=== PATIENT | female | born 1960 | race African-American/Black ===

== ENCOUNTER 2025-02-09 15:40 | Inpatient (IN) | payer MEDICARE, MEDICAID, BC ==
[~2025-02-09] VITALS: Ht 157.5 cm; Wt 47.2 kg
[2025-02-09] VITALS (9 sets, daily range): BP systolic 106–150; BP diastolic 50–89; PULSE 72–90; RESP 19–28; TEMP 36.2–36.3; O2SAT 95–100
[2025-02-09] MEDS ORDERED: IPRATROPIUM/ALBUTEROL 0.5-3(2.5)MG/3ML NEB HHN PRN (22:15)
[2025-02-09] MEDS ORDERED: MIRT-89 GT (23:52)
[2025-02-09] MEDS ORDERED: LIDO700A30 TP (23:52)
[2025-02-09] MEDS ORDERED: INSU100V43 SQ (23:52)
[2025-02-09] MEDS ORDERED: MELA5TAB19 GT (23:52)
[2025-02-09] MEDS ORDERED: TOPUD PO (23:52)
[2025-02-09] MEDS ORDERED: METO5SOL22 GT (23:52)
[2025-02-09] MEDS ORDERED: HYDR25TA78 GT (23:52)
[2025-02-09] MEDS ORDERED: ACYC200C31 IV (23:52)
[2025-02-09] MEDS ORDERED: DARB40DI IVP (23:52)
[2025-02-09] MEDS ORDERED: METH80VI IJ (23:52)
[2025-02-09] MEDS ORDERED: NEOAPJ IVP (23:52)
[2025-02-09] MEDS ORDERED: ATOR-2 GT (23:52)
[2025-02-09] MEDS ORDERED: BISA-145 PR (23:52)
[2025-02-09] MEDS ORDERED: AMIO100T4 GT (23:52)
[2025-02-09] MEDS ORDERED: LATA2.5D14 EACHEYE (23:52)
[2025-02-09] MEDS ORDERED: APIX2.5T GT (23:52)
[2025-02-09] MEDS ORDERED: LEVE100034 IV (23:52)
[2025-02-09] MEDS ORDERED: LORA2DIS6 IJ (23:52)
[2025-02-09] MEDS ORDERED: HYDR1LIQ5 IVP ×2 (23:52)
[2025-02-09] MEDS ORDERED: LOPE2CAP GT (23:52)
[2025-02-09] MEDS ORDERED: METO100T16 GT (23:52)
[2025-02-10] VITALS (107 sets, daily range): BP systolic 94–174; BP diastolic 42–134; PULSE 61–100; RESP 14–50; TEMP 33.28044–36.8; O2SAT 88–100
[2025-02-10] MEDS ORDERED: NITR30OI TP (00:03)
[2025-02-10] MEDS ORDERED: OLAN2.5T77 GT (00:03)
[2025-02-10] MEDS ORDERED: NYST15CR31 TP (00:03)
[2025-02-10] MEDS ORDERED: SEVE800T8 GT (00:03)
[2025-02-10] MEDS ORDERED: ONDA2VIA4 IVP (00:03)
[2025-02-10] MEDS ORDERED: ZINC113C10 TP (00:03)
[2025-02-10] MEDS ORDERED: ZINC220T3 GT (00:03)
[2025-02-10] MEDS ORDERED: MULT-622 GT (00:03)
[2025-02-10] MEDS ORDERED: PANT40TA51 IVP (00:03)
[2025-02-10 01:06] LABS: MEAN CORPUSCULAR HEMOGLOBIN 26.3 pg (28.0-32.0); MEAN CORPUSCULAR HGB CONC 32.6 g/dL (31.0-37.0); MEAN CORPUSCULAR VOLUME 80.7 fL (81.0-99.0); MEAN PLATELET VOLUME 9.9 fl (7.4-10.4); PLATELET 80 x1000/uL (130-400); RED BLOOD CELL COUNT 2.33 mill/uL (4.2-5.4); RED CELL DISTRIBUTION WIDTH 17.6 % (11.6-14.6); WHITE BLOOD COUNT 13.7 x1000/uL (4.5-11.0)
[2025-02-10 01:23] LABS: CHLORIDE 100 mEq/L (98-107); SODIUM 139 mEq/L (136-145)
[2025-02-10 01:24] LABS: CALCIUM 8.2 mg/dL (8.7-10.4); CARBON DIOXIDE 30 mEq/L (21-32); DIFFERENTIAL COMMENT 1
[2025-02-10 01:29] LABS: CREATININE 2.3 mg/dL (0.6-1.0); GLUCOSE 159 mg/dL (70-105)
[2025-02-10 01:30] LABS: ALANINE AMINOTRANSFERASE 85 IU/L (10-49); ASPARTATE AMINOTRANSFERASE 76 IU/L (<34)
[2025-02-10 01:31] LABS: ALBUMIN 1.9 g/dL (3.2-4.8); BILIRUBIN TOTAL 0.3 mg/dL (0.1-1.0)
[2025-02-10 01:32] LABS: HEMATOCRIT. 18.8 % (36.0-48.0); HEMOGLOBIN. 6.1 g/dL (12.0-16.0)
[2025-02-10 01:41] LABS: PROTEIN TOTAL 4.3 g/dL (6.0-8.3)
[2025-02-10 01:43] LABS: POTASSIUM 2.6 mEq/L (3.5-5.1)
[2025-02-10 01:44] LABS: UREA NITROGEN BLOOD 110 mg/dL (9-23)
[2025-02-10] MEDS ORDERED: HYDROCODONE/ACETAMINOPHEN 5/325MG TABLET GT PRN (02:15)
[2025-02-10] MEDS ORDERED: ONDANSETRON HCL 4MG/2ML INJ IV PRN (02:15)
[2025-02-10] MEDS ORDERED: ACETAMINOPHEN 650MG/20.3ML UDC GT PRN ×2 (02:15)
[2025-02-10] MEDS ORDERED: CLONIDINE 0.1MG TABLET GT PRN (02:15)
[2025-02-10] MEDS ORDERED: LORAZEPAM 2MG/ML UD SYRINGE IV PRN (02:15)
[2025-02-10] MEDS ORDERED: HYDROMORPHONE HCL/PF 2MG/ML INJ IV PRN (02:15)
[2025-02-10] MEDS ORDERED: ACETAMINOPHEN 650MG SUPP PR PRN ×2 (02:15)
[2025-02-10] MEDS ORDERED: MAGNESIUM/ALUMINUM HYDROXIDE/SIMETHICONE 30ML UDC PEG PRN (02:15)
[2025-02-10] MEDS ORDERED: NA PHOS,M-B/NA PHOS,DI-BA ENEMA 118ML PR PRN (02:15)
[2025-02-10] MEDS: DEXT 5%/0.45% NACL 1000ML 1,000 ML IV SCH (03:18)
[2025-02-10] MEDS: KCL 20MEQ/100ML PREMIX 100 ML IV SCH ×2 (03:19→05:09)
[2025-02-10] MEDS ORDERED: ACYCLOVIR INJ 500 MG in DEXT 5% WATER 100 ML IV SCH (06:30)
[2025-02-10 08:15] LABS: MEAN CORPUSCULAR HEMOGLOBIN 26.2 pg (28.0-32.0); MEAN CORPUSCULAR HGB CONC 32.1 g/dL (31.0-37.0); MEAN CORPUSCULAR VOLUME 81.7 fL (81.0-99.0); MEAN PLATELET VOLUME 10.9 fl (7.4-10.4); PLATELET 71 x1000/uL (130-400); RED BLOOD CELL COUNT 2.32 mill/uL (4.2-5.4); RED CELL DISTRIBUTION WIDTH 17.8 % (11.6-14.6); WHITE BLOOD COUNT 12.1 x1000/uL (4.5-11.0)
[2025-02-10] MEDS ORDERED: CEFEPIME 1GM IN DEXT 5% 50ML IV SCH (08:15)
[2025-02-10 08:24] LABS: TROPONIN I HIGH SENSITIVITY 28 ng/L (3.0-34)
[2025-02-10 08:26] LABS: CREATINE KINASE 40 IU/L (34-145)
[2025-02-10 08:31] LABS: DIFFERENTIAL COMMENT 1
[2025-02-10 08:33] LABS: HEMOGLOBIN. 6.1 g/dL (12.0-16.0)
[2025-02-10 08:34] LABS: HEMATOCRIT. 18.9 % (36.0-48.0)
[2025-02-10] MEDS: METHYLPREDNISOLONE SOD SUCC 40MG/ML (ACT-O-VIAL) IV SCH (09:32)
[2025-02-10] MEDS: DEXTROSE 5% IV SCH (09:32)
[2025-02-10] MEDS: WATER IV SCH (09:32)
[2025-02-10] MEDS: ACYCLOVIR IV SCH (09:32)
[2025-02-10 10:40] LABS: BG BASE EXCESS 2.8 mmol/L (-2.0-3.0); BG CARBOXYHEMOGLOBIN 0.1 % (0.5-1.5); BG DEOXYHEMOGLOBIN 0.8 % (0.0-5.0); BG FRACTION INSPIRED OXYGEN 100; BG HCO3 ACT 26.5 mmol/L (21.0-28.0); BG OXYGEN SATURATION 99.2 % (94.0-98.0); BG OXYHEMOGLOBIN 99.1 % (94.0-98.0); BG PCO2 36.7 mmHg (32.0-45.0); BG PH 7.476 (7.350-7.450); BG TOTAL HEMOGLOBIN 9.3 g/dL (12.0-16.0); BG VENT MODE VENT - AC
[2025-02-10] MEDS: CEFEPIME 1GM/50ML 50 ML IV SCH (10:43)
[2025-02-10 11:28] LABS: ANISOCYTOSIS 1+; HYPOCHROMASIA 2+; PLATELET ESTIMATE DECREASED
[2025-02-10 11:33] LABS: PLATELET ESTIMATE DECREASED
[2025-02-10 11:34] LABS: ANISOCYTOSIS 2+; HYPOCHROMASIA 1+; TARGET CELLS 1+
[2025-02-10] MEDS: AMLODIPINE 5MG TABLET PO SCH (12:10)
[2025-02-10] MEDS: VANCOMYCIN 1G PREMIX 200 ML IV SCH (12:10)
[2025-02-10] MEDS: AMIODARONE 200MG TABLET PO SCH (12:10)
[2025-02-10] MEDS: LEVETIRACETAM 1000MG PREMIX 100 ML IV SCH (12:10)
[2025-02-10 12:32] LABS: CHLORIDE 103 mEq/L (98-107); POTASSIUM 3.8 mEq/L (3.5-5.1); SODIUM 138 mEq/L (136-145)
[2025-02-10 12:33] LABS: CALCIUM 8.3 mg/dL (8.7-10.4); CARBON DIOXIDE 29 mEq/L (21-32)
[2025-02-10 12:38] LABS: CREATININE 2.5 mg/dL (0.6-1.0); GLUCOSE 235 mg/dL (70-105)
[2025-02-10 12:40] LABS: ALANINE AMINOTRANSFERASE 73 IU/L (10-49); ALBUMIN 1.8 g/dL (3.2-4.8); ASPARTATE AMINOTRANSFERASE 60 IU/L (<34); BILIRUBIN TOTAL 0.5 mg/dL (0.1-1.0); PHOSPHORUS 3.5 mg/dL (2.5-4.9)
[2025-02-10 12:41] LABS: PROTEIN TOTAL 4.2 g/dL (6.0-8.3)
[2025-02-10 14:07] LABS: UREA NITROGEN BLOOD 105 mg/dL (9-23)
[2025-02-10] MEDS: HYDRALAZINE HCL 25MG TABLET PO SCH (15:10)
[2025-02-10 15:57] LABS: HEMATOCRIT 24.9 % (36.0-48.0); HEMOGLOBIN 8.2 g/dL (12.0-16.0); MEAN CORPUSCULAR HEMOGLOBIN 27.6 pg (28.0-32.0); MEAN CORPUSCULAR HGB CONC 33.1 g/dL (31.0-37.0); MEAN CORPUSCULAR VOLUME 83.2 fL (81.0-99.0); PLATELET 74 x1000/uL (130-400); RED BLOOD CELL COUNT 2.99 mill/uL (4.2-5.4); RED CELL DISTRIBUTION WIDTH 16.7 % (11.6-14.6); WHITE BLOOD COUNT 13.8 x1000/uL (4.5-11.0)
[2025-02-10 16:26] LABS: HEPATITIS B SURFACE ANTIGEN NEGATIVE (Negative)
[2025-02-10 16:47] LABS: HEPATITIS A AB IGM NEGATIVE (Negative); HEPATITIS B CORE AB IGM NEGATIVE (Negative)
[2025-02-10 16:48] LABS: HEPATITIS C AB NON REACTIVE (Neg) (Negative)
[2025-02-10] MEDS ORDERED: FENTANYL 2500MCG/250ML PMX 250 ML IV ONE (19:00)
[2025-02-10] MEDS: PROPOFOL 10MG/ML 100ML 100 ML IV PRN (19:03)
[2025-02-10] MEDS ORDERED: LEVETIRACETAM 1,000MG in NACL 100ML PREMIX IV SCH (21:00)
[2025-02-10] MEDS: IPRATROPIUM/ALBUTEROL 0.5-3(2.5)MG/3ML NEB HHN SCH (21:40)
[2025-02-10] MEDS: ATORVASTATIN CALCIUM 40MG TABLET PO SCH (21:52)
[2025-02-10] MEDS: METOPROLOL TARTRATE 100MG TABLET PO SCH (21:55)
[2025-02-11] VITALS (106 sets, daily range): BP systolic 88–171; BP diastolic 50–125; PULSE 58–115; RESP 13–38; TEMP 36.6–36.9; O2SAT 84–99
[2025-02-11 06:00] LABS: HEMATOCRIT. 25.6 % (36.0-48.0); HEMOGLOBIN. 8.5 g/dL (12.0-16.0); MEAN CORPUSCULAR HEMOGLOBIN 27.8 pg (28.0-32.0); MEAN CORPUSCULAR HGB CONC 33.2 g/dL (31.0-37.0); MEAN CORPUSCULAR VOLUME 83.7 fL (81.0-99.0); MEAN PLATELET VOLUME 11.2 fl (7.4-10.4); PLATELET 78 x1000/uL (130-400); RED BLOOD CELL COUNT 3.06 mill/uL (4.2-5.4); RED CELL DISTRIBUTION WIDTH 16.8 % (11.6-14.6); WHITE BLOOD COUNT 15.2 x1000/uL (4.5-11.0)
[2025-02-11 06:01] LABS: CHLORIDE 103 mEq/L (98-107); POTASSIUM 3.4 mEq/L (3.5-5.1); SODIUM 139 mEq/L (136-145)
[2025-02-11 06:02] LABS: CARBON DIOXIDE 27 mEq/L (21-32)
[2025-02-11 06:07] LABS: GLUCOSE 237 mg/dL (70-105); TRIGLYCERIDE 130 mg/dL (0-150); UREA NITROGEN BLOOD 56 mg/dL (9-23)
[2025-02-11 06:09] LABS: ALBUMIN 1.9 g/dL (3.2-4.8)
[2025-02-11 06:10] LABS: THYROID STIMULATING HORMONE 1.24 uIU/mL (0.55-4.78)
[2025-02-11 06:13] LABS: DIFFERENTIAL COMMENT 1
[2025-02-11 06:17] LABS: CREATININE 1.7 mg/dL (0.6-1.0); PREALBUMIN < 5.0 mg/dl (10.0-40.0)
[2025-02-11] MEDS: KCL 20MEQ/100ML PREMIX 100 ML IV NR (08:46)
[2025-02-11 09:28] LABS: ANISOCYTOSIS 1+; HYPOCHROMASIA 1+; PLATELET ESTIMATE DECREASED; TARGET CELLS 1+
[2025-02-11 09:30] LABS: BG BASE EXCESS 1.2 mmol/L (-2.0-3.0); BG CARBOXYHEMOGLOBIN 1.5 % (0.5-1.5); BG DEOXYHEMOGLOBIN 9.7 % (0.0-5.0); BG FRACTION INSPIRED OXYGEN 60; BG HCO3 ACT 24.4 mmol/L (21.0-28.0); BG METHEMOGLOBIN 0.3 % (0.5-1.5); BG OXYGEN SATURATION 90.1 % (94.0-98.0); BG OXYHEMOGLOBIN 88.5 % (94.0-98.0); BG PH 7.473 (7.350-7.450); BG SAMPLE SITE LEFT BRACHIAL; BG TOTAL HEMOGLOBIN 13.4 g/dL (12.0-16.0); BG VENT MODE VENT - AC-PRVC
[2025-02-11] MEDS: PIPERACILLIN/TAZO 3.375G/50ML 50 ML IV SCH (09:42)
[2025-02-11] MEDS ORDERED: PIPERACILLIN/TAZO 3.375G/50ML 50 ML IV SCH (10:00)
[2025-02-11] MEDS: HYDRALAZINE HCL 50MG TABLET PO SCH (14:26)
[2025-02-11] MEDS: PROPOFOL 10MG/ML 100ML 100 ML IV PRN (20:11)
[2025-02-12] VITALS (98 sets, daily range): BP systolic 78–198; BP diastolic 45–110; PULSE 40–98; RESP 13–39; TEMP 36.1–36.8; O2SAT 85–100
[2025-02-12 06:06] LABS: HEMATOCRIT. 26.8 % (36.0-48.0); HEMOGLOBIN. 8.9 g/dL (12.0-16.0); MEAN CORPUSCULAR HEMOGLOBIN 27.8 pg (28.0-32.0); MEAN CORPUSCULAR HGB CONC 33.2 g/dL (31.0-37.0); MEAN CORPUSCULAR VOLUME 83.7 fL (81.0-99.0); MEAN PLATELET VOLUME 11.5 fl (7.4-10.4); RED CELL DISTRIBUTION WIDTH 16.8 % (11.6-14.6); WHITE BLOOD COUNT 11.1 x1000/uL (4.5-11.0)
[2025-02-12 06:18] LABS: POTASSIUM 3.9 mEq/L (3.5-5.1)
[2025-02-12 06:19] LABS: CALCIUM 8.5 mg/dL (8.7-10.4)
[2025-02-12 06:24] LABS: CREATININE 2.1 mg/dL (0.6-1.0)
[2025-02-12 06:30] LABS: INR 1.1; PARTIAL THROMBOPLASTIN TIME 28.8 sec (23.4-31.0)
[2025-02-12 06:51] LABS: DIFFERENTIAL COMMENT 1
[2025-02-12] MEDS ORDERED: DEXTROSE 50% WATER 50ML SYRINGE IV PRN (07:30)
[2025-02-12] MEDS: BLOOD SUGAR DIAGNOSTIC STRIP TEST SCH (07:44)
[2025-02-12] MEDS: INSULIN LISPRO 100 UNITS/ML SUBCUT SCH (07:51)
[2025-02-12] MEDS: PANTOPRAZOLE SODIUM 40 MG/VIAL IV SCH (09:48)
[2025-02-12 10:19] LABS: BG BASE EXCESS -2.2 mmol/L (-2.0-3.0); BG DEOXYHEMOGLOBIN 10.1 % (0.0-5.0); BG FRACTION INSPIRED OXYGEN 45; BG HCO3 ACT 22.2 mmol/L (21.0-28.0); BG METHEMOGLOBIN 0.3 % (0.5-1.5); BG OXYGEN SATURATION 89.9 % (94.0-98.0); BG OXYHEMOGLOBIN 89.6 % (94.0-98.0); BG PCO2 36.9 mmHg (32.0-45.0); BG PH 7.398 (7.350-7.450); BG PO2 59.7 mmHg (83.0-108.0); BG SAMPLE SITE RIGHT BRACHIAL; BG TOTAL HEMOGLOBIN 9.7 g/dL (12.0-16.0); BG VENT MODE VENT - PRVC
[2025-02-12 10:34] LABS: PLATELET ESTIMATE DECREASED
[2025-02-12 10:35] LABS: HYPOCHROMASIA 1+; ROULEAUX 1+
[2025-02-12 10:37] LABS: ANISOCYTOSIS 1+
[2025-02-12 10:39] LABS: PLATELET 60 x1000/uL (130-400)
[2025-02-12] MEDS: NOREPINEPHRINE 32 MG in DEXT 5% WATER 218 ML IV PRN (11:56)
[2025-02-12] MEDS ORDERED: NALOXONE HCL 0.4MG/ML VIAL IV PRN (15:00)
[2025-02-13] VITALS (69 sets, daily range): BP systolic 87–152; BP diastolic 51–131; PULSE 42–116; RESP 14–43; TEMP 35.6–37.3; O2SAT 81–100
[2025-02-13] MEDS: DOPAMINE 800MG PREMIX (DOUBLE) 250 ML IV PRN (03:11)
[2025-02-13 06:16] LABS: CALCIUM 8.8 mg/dL (8.7-10.4); POTASSIUM 3.4 mEq/L (3.5-5.1)
[2025-02-13 06:22] LABS: CREATININE 1.6 mg/dL (0.6-1.0)
[2025-02-13 07:52] LABS: HEMATOCRIT. 34.2 % (36.0-48.0); HEMOGLOBIN. 11.6 g/dL (12.0-16.0); MEAN CORPUSCULAR HEMOGLOBIN 27.9 pg (28.0-32.0); MEAN CORPUSCULAR HGB CONC 34.1 g/dL (31.0-37.0); MEAN CORPUSCULAR VOLUME 81.8 fL (81.0-99.0); MEAN PLATELET VOLUME 11.3 fl (7.4-10.4); PLATELET 94 x1000/uL (130-400); RED BLOOD CELL COUNT 4.18 mill/uL (4.2-5.4); RED CELL DISTRIBUTION WIDTH 16.8 % (11.6-14.6); WHITE BLOOD COUNT 14.5 x1000/uL (4.5-11.0)
[2025-02-13] MEDS: POTASSIUM CHLORIDE 20MEQ/PACKET PO SCH (08:09)
[2025-02-13 08:16] LABS: DIFFERENTIAL COMMENT 1
[2025-02-13 09:37] LABS: ANISOCYTOSIS 1+; HYPOCHROMASIA 1+; PLATELET ESTIMATE DECREASED; ROULEAUX 1+
[2025-02-13 09:37] LABS: BG BASE EXCESS 2.5 mmol/L (-2.0-3.0); BG CARBOXYHEMOGLOBIN 1.4 % (0.5-1.5); BG DEOXYHEMOGLOBIN 4.7 % (0.0-5.0); BG FRACTION INSPIRED OXYGEN 70; BG HCO3 ACT 25.2 mmol/L (21.0-28.0); BG METHEMOGLOBIN 0.3 % (0.5-1.5); BG OXYGEN SATURATION 95.2 % (94.0-98.0); BG OXYHEMOGLOBIN 93.6 % (94.0-98.0); BG PCO2 32.7 mmHg (32.0-45.0); BG PH 7.504 (7.350-7.450); BG PO2 70.2 mmHg (83.0-108.0); BG SAMPLE SITE RIGHT RADIAL; BG TOTAL HEMOGLOBIN 12.8 g/dL (12.0-16.0); BG VENT MODE VENT - PRVC
[2025-02-13] MEDS: COLISTIMETHATE SODIUM 300 MG in SODIUM CHLORIDE 0.9% 100 ML IV SCH (17:12)
[2025-02-13] MEDS: AMPICILLIN/SULBACTAM 3G in SODIUM CHLORIDE 0.9% 100ML IV SCH (17:13)
[2025-02-13] MEDS: FENTANYL CITRATE 2,500 MCG in SODIUM CHLORIDE 0.9% 200 ML IV PRN (20:26)
[2025-02-14] VITALS (113 sets, daily range): BP systolic 67–187; BP diastolic 45–115; PULSE 76–120; RESP 12–38; TEMP 35.1–37.2; O2SAT 84–100
[2025-02-14 06:19] LABS: POTASSIUM 4.5 mEq/L (3.5-5.1)
[2025-02-14 06:21] LABS: CALCIUM 8.3 mg/dL (8.7-10.4)
[2025-02-14 06:25] LABS: CREATININE 1.9 mg/dL (0.6-1.0)
[2025-02-14 06:36] LABS: HEMATOCRIT. 28.1 % (36.0-48.0); HEMOGLOBIN. 9.2 g/dL (12.0-16.0); MEAN CORPUSCULAR HEMOGLOBIN 27.2 pg (28.0-32.0); MEAN CORPUSCULAR HGB CONC 32.7 g/dL (31.0-37.0); MEAN PLATELET VOLUME 11.4 fl (7.4-10.4); PLATELET 84 x1000/uL (130-400); RED BLOOD CELL COUNT 3.38 mill/uL (4.2-5.4); RED CELL DISTRIBUTION WIDTH 17.5 % (11.6-14.6); WHITE BLOOD COUNT 23.3 x1000/uL (4.5-11.0)
[2025-02-14 06:42] LABS: DIFFERENTIAL COMMENT 1
[2025-02-14] MEDS: SODIUM CHLORIDE 0.9% IV SCH (08:54)
[2025-02-14] MEDS: COLISTIMETHATE SODIUM IV SCH (08:54)
[2025-02-14 09:00] LABS: BG BASE EXCESS -3.4 mmol/L (-2.0-3.0); BG CARBOXYHEMOGLOBIN 1.1 % (0.5-1.5); BG DEOXYHEMOGLOBIN 1.2 % (0.0-5.0); BG FRACTION INSPIRED OXYGEN 100; BG HCO3 ACT 22.2 mmol/L (21.0-28.0); BG METHEMOGLOBIN 0.1 % (0.5-1.5); BG OXYGEN SATURATION 98.8 % (94.0-98.0); BG OXYHEMOGLOBIN 97.6 % (94.0-98.0); BG PO2 145.2 mmHg (83.0-108.0); BG SAMPLE SITE RIGHT RADIAL; BG TOTAL HEMOGLOBIN 8.3 g/dL (12.0-16.0); BG TOTAL RESPIRATORY RATE 20 b/min; BG VENT MODE VENT-PRVC
[2025-02-14 10:20] LABS: NUCLEATED RED BLOOD CELLS 1 /100 WBC
[2025-02-14 10:21] LABS: GIANT PLATELETS FEW; PLATELET ESTIMATE MARKEDLY DECREASED; PLATELET SATELLITISM FEW
[2025-02-14] MEDS: DOXYCYCLINE 100MG/100ML 100 ML IV SCH (15:22)
[2025-02-15] VITALS (74 sets, daily range): BP systolic 92–167; BP diastolic 51–85; PULSE 76–111; RESP 0–33; TEMP 36.2–37.2; O2SAT 90–100
[2025-02-15] MEDS: BLOOD SUGAR DIAGNOSTIC STRIP TEST SCH
[2025-02-15] MEDS: INSULIN LISPRO 100 UNITS/ML SUBCUT SCH
[2025-02-15 05:54] LABS: HEMATOCRIT. 22.4 % (36.0-48.0); HEMOGLOBIN. 7.4 g/dL (12.0-16.0); MEAN CORPUSCULAR HEMOGLOBIN 27.9 pg (28.0-32.0); MEAN CORPUSCULAR HGB CONC 32.9 g/dL (31.0-37.0); MEAN PLATELET VOLUME 11.3 fl (7.4-10.4); PLATELET 68 x1000/uL (130-400); RED BLOOD CELL COUNT 2.64 mill/uL (4.2-5.4); RED CELL DISTRIBUTION WIDTH 18.1 % (11.6-14.6); WHITE BLOOD COUNT 14.8 x1000/uL (4.5-11.0)
[2025-02-15 06:17] LABS: CALCIUM 8.6 mg/dL (8.7-10.4)
[2025-02-15 06:22] LABS: CREATININE 2.3 mg/dL (0.6-1.0)
[2025-02-15 06:26] LABS: DIFFERENTIAL COMMENT 1
[2025-02-15 08:25] LABS: ANISOCYTOSIS 2+; PLATELET ESTIMATE DECREASED
[2025-02-15] MEDS: SODIUM POLYSTYRENE SULFONATE 15 G/60 ML BOT PO NR (08:25)
[2025-02-15] MEDS: CALCIUM CHLORIDE 1GM/10ML SYR IV NR (08:27)
[2025-02-15] MEDS: DEXTROSE 50% WATER 50ML SYRINGE IV NR (08:27)
[2025-02-15] MEDS: INSULIN REGULAR (HUMULIN R) 1000UNITS/10ML VIAL IV NR (08:29)
[2025-02-15] MEDS: ALBUTEROL (0.083%) 2.5MG/3ML NEB HHN NR (08:34)
[2025-02-15 09:38] LABS: BG BASE EXCESS -5.8 mmol/L (-2.0-3.0); BG CARBOXYHEMOGLOBIN 1.9 % (0.5-1.5); BG DEOXYHEMOGLOBIN 5.7 % (0.0-5.0); BG FRACTION INSPIRED OXYGEN 60; BG HCO3 ACT 21.1 mmol/L (21.0-28.0); BG METHEMOGLOBIN 0.3 % (0.5-1.5); BG OXYGEN SATURATION 94.2 % (94.0-98.0); BG OXYHEMOGLOBIN 92.1 % (94.0-98.0); BG PCO2 49.6 mmHg (32.0-45.0); BG PH 7.247 (7.350-7.450); BG PO2 80.3 mmHg (83.0-108.0); BG SAMPLE SITE RIGHT RADIAL; BG TOTAL HEMOGLOBIN 7.2 g/dL (12.0-16.0); BG VENT MODE VENT - PRVC
[2025-02-15] MEDS: HYDRALAZINE HCL 25MG TABLET PO SCH (11:39)
[2025-02-15 16:05] LABS: CHLORIDE 103 mEq/L (98-107); SODIUM 140 mEq/L (136-145)
[2025-02-15 16:06] LABS: CARBON DIOXIDE 29 mEq/L (21-32)
[2025-02-15 16:09] LABS: POTASSIUM 3.1 mEq/L (3.5-5.1)
[2025-02-15] MEDS: POTASSIUM CHLORIDE 20MEQ/PACKET PO NR (20:00)
[2025-02-16] VITALS (114 sets, daily range): BP systolic 64–219; BP diastolic 37–81; PULSE 58–93; RESP 10–41; TEMP 34–37.2; O2SAT 57–100
[2025-02-16 06:10] LABS: HEMATOCRIT. 23.2 % (36.0-48.0); HEMOGLOBIN. 7.9 g/dL (12.0-16.0); MEAN CORPUSCULAR HEMOGLOBIN 28.6 pg (28.0-32.0); MEAN PLATELET VOLUME 11.2 fl (7.4-10.4); PLATELET 54 x1000/uL (130-400); RED BLOOD CELL COUNT 2.76 mill/uL (4.2-5.4); RED CELL DISTRIBUTION WIDTH 17.9 % (11.6-14.6)
[2025-02-16 06:21] LABS: DIFFERENTIAL COMMENT 1
[2025-02-16 06:23] LABS: POTASSIUM 3.2 mEq/L (3.5-5.1)
[2025-02-16 06:24] LABS: CALCIUM 8.8 mg/dL (8.7-10.4)
[2025-02-16 06:29] LABS: CREATININE 1.3 mg/dL (0.6-1.0)
[2025-02-16] MEDS: MIDAZOLAM HCL 2 MG/2 ML VIAL ONE (07:40)
[2025-02-16] MEDS: MIDAZOLAM HCL 5 MG/5 ML VIAL IV SCH (08:00)
[2025-02-16] MEDS: POTASSIUM CHLORIDE 20MEQ/PACKET PO SCH (08:45)
[2025-02-16 09:34] LABS: BG BASE EXCESS -0.6 mmol/L (-2.0-3.0); BG CARBOXYHEMOGLOBIN 1.3 % (0.5-1.5); BG DEOXYHEMOGLOBIN 18.1 % (0.0-5.0); BG FRACTION INSPIRED OXYGEN 100; BG HCO3 ACT 27.5 mmol/L (21.0-28.0); BG METHEMOGLOBIN 0.1 % (0.5-1.5); BG OXYGEN SATURATION 81.6 % (94.0-98.0); BG OXYHEMOGLOBIN 80.5 % (94.0-98.0); BG PCO2 70.5 mmHg (32.0-45.0); BG PH 7.209 (7.350-7.450); BG PO2 53.4 mmHg (83.0-108.0); BG SAMPLE SITE RIGHT RADIAL; BG VENT MODE VENT - P/C
[2025-02-16] MEDS ORDERED: FENTANYL 2500MCG/250ML PMX 250 ML IV PRN (10:45)
[2025-02-16] MEDS ORDERED: PHYTONADIONE 10 MG in DEXTROSE 5% WATER 49 ML IV ONE (11:15)
[2025-02-16] MEDS: PROPOFOL 10MG/ML 100ML 100 ML IV PRN (11:44)
[2025-02-16] MEDS: RACEPINEPHRINE 2.25% 0.5ML NEB VIAL HHN NR (12:00)
[2025-02-16] MEDS: DESMOPRESSIN ACETATE IVPB 15 MCG in SODIUM CHLORIDE 0.9% 50 ML IV SCH (12:34)
[2025-02-16] MEDS: HYDROCORTISONE SOD SUCCINATE 100 MG/2 ML VIAL IV SCH (12:34)
[2025-02-16] MEDS: VECURONIUM BROMIDE 10 MG/VIAL IV NR (12:35)
[2025-02-16] MEDS: EPINEPHRINE 1:1000 1 MG/ML AMP IM NR (12:45)
[2025-02-16 13:57] LABS: BG BASE EXCESS -3.3 mmol/L (-2.0-3.0); BG CARBOXYHEMOGLOBIN 1.5 % (0.5-1.5); BG DEOXYHEMOGLOBIN 25.7 % (0.0-5.0); BG FRACTION INSPIRED OXYGEN 100; BG HCO3 ACT 25.5 mmol/L (21.0-28.0); BG METHEMOGLOBIN 0.3 % (0.5-1.5); BG OXYGEN SATURATION 73.8 % (94.0-98.0); BG OXYHEMOGLOBIN 72.5 % (94.0-98.0); BG PCO2 73.6 mmHg (32.0-45.0); BG PH 7.157 (7.350-7.450); BG PO2 45.9 mmHg (83.0-108.0); BG SAMPLE SITE RIGHT RADIAL; BG TOTAL HEMOGLOBIN 7.1 g/dL (12.0-16.0); BG VENT MODE VENT - PRVC
[2025-02-16] MEDS ORDERED: POTASSIUM CHLORIDE 20 MEQ in DEXT 5% WATER 90 ML IV ONE (14:15)
[2025-02-16] MEDS: SODIUM BICARBONATE 8.4% 50MEQ/50ML SYR IV NR (15:48)
[2025-02-16] MEDS: SODIUM BICARBONATE 100 MEQ in DEXTROSE 5% WATER 900 ML IV SCH (17:35)
[2025-02-16 19:55] LABS: GIANT PLATELETS FEW; NUCLEATED RED BLOOD CELLS 2 /100 WBC; PLATELET ESTIMATE MARKEDLY DECREASED; PLATELET SATELLITISM FEW
[2025-02-17] VITALS (108 sets, daily range): BP systolic 117–176; BP diastolic 54–95; PULSE 40–63; RESP 18–40; TEMP 36.00288–36.8; O2SAT 87–100
[2025-02-17] MEDS: FENTANYL CITRATE 2,500 MCG in SODIUM CHLORIDE 0.9% 200 ML IV PRN (02:17)
[2025-02-17 05:57] LABS: CHLORIDE 102 mEq/L (98-107); POTASSIUM 2.9 mEq/L (3.5-5.1); SODIUM 144 mEq/L (136-145)
[2025-02-17 05:58] LABS: CALCIUM 8.6 mg/dL (8.7-10.4); CARBON DIOXIDE 28 mEq/L (21-32)
[2025-02-17 06:03] LABS: CREATININE 1.4 mg/dL (0.6-1.0); GLUCOSE 228 mg/dL (70-105)
[2025-02-17 06:04] LABS: TRIGLYCERIDE 78 mg/dL (0-150); UREA NITROGEN BLOOD 44 mg/dL (9-23)
[2025-02-17 06:06] LABS: PHOSPHORUS 3.8 mg/dL (2.5-4.9)
[2025-02-17 06:13] LABS: MEAN CORPUSCULAR HEMOGLOBIN 27.9 pg (28.0-32.0); MEAN CORPUSCULAR HGB CONC 33.8 g/dL (31.0-37.0); MEAN CORPUSCULAR VOLUME 82.7 fL (81.0-99.0); RED BLOOD CELL COUNT 2.23 mill/uL (4.2-5.4); RED CELL DISTRIBUTION WIDTH 17.5 % (11.6-14.6); WHITE BLOOD COUNT 9.5 x1000/uL (4.5-11.0)
[2025-02-17 06:36] LABS: DIFFERENTIAL COMMENT 1
[2025-02-17 06:37] LABS: HEMATOCRIT. 18.5 % (36.0-48.0); HEMOGLOBIN. 6.2 g/dL (12.0-16.0)
[2025-02-17 07:47] LABS: PLATELET 34 x1000/uL (130-400)
[2025-02-17] MEDS ORDERED: KCL 20MEQ/100ML PREMIX 100 ML IV SCH (08:00)
[2025-02-17] MEDS: MAGNESIUM 2 G PREMIX 50 ML IV SCH (08:13)
[2025-02-17] MEDS: KCL 20MEQ/100ML PREMIX 100 ML IV SCH (08:42)
[2025-02-17 10:45] LABS: POTASSIUM 2.5 mEq/L (3.5-5.1)
[2025-02-17] MEDS ORDERED: DOPAMINE 400MG/250ML PREMIX 250 ML IV PRN (13:00)
[2025-02-17] MEDS: MIDAZOLAM 100MG/100ML PMX 100 ML IV PRN (13:31)
[2025-02-17 16:09] LABS: HEMATOCRIT. 22.8 % (36.0-48.0); HEMOGLOBIN. 7.6 g/dL (12.0-16.0); MEAN CORPUSCULAR HEMOGLOBIN 27.9 pg (28.0-32.0); MEAN CORPUSCULAR HGB CONC 33.4 g/dL (31.0-37.0); MEAN CORPUSCULAR VOLUME 83.7 fL (81.0-99.0); MEAN PLATELET VOLUME 8.5 fl (7.4-10.4); RED BLOOD CELL COUNT 2.73 mill/uL (4.2-5.4); RED CELL DISTRIBUTION WIDTH 16.6 % (11.6-14.6); WHITE BLOOD COUNT 6.5 x1000/uL (4.5-11.0)
[2025-02-17 16:21] LABS: POTASSIUM 3.5 mEq/L (3.5-5.1)
[2025-02-17 16:23] LABS: CALCIUM 8.3 mg/dL (8.7-10.4)
[2025-02-17 16:26] LABS: DIFFERENTIAL COMMENT 1
[2025-02-17 16:27] LABS: CREATININE 1.4 mg/dL (0.6-1.0)
[2025-02-17 16:33] LABS: PLATELET 50 x1000/uL (130-400)
[2025-02-17 17:27] LABS: ANISOCYTOSIS 1+; NUCLEATED RED BLOOD CELLS 1 /100 WBC
[2025-02-17 17:32] LABS: PLATELET ESTIMATE DECREAS
[2025-02-17 17:34] LABS: HYPOCHROMASIA 1+; OVALOCYTES 1+
[2025-02-17 18:57] LABS: HYPOCHROMASIA 2+; MICROCYTOSIS 3+; PLATELET ESTIMATE DECREASED; TARGET CELLS 1+
[2025-02-17 21:19] LABS: POTASSIUM 3.2 mEq/L (3.5-5.1)
[2025-02-18] VITALS (104 sets, daily range): BP systolic 87–137; BP diastolic 48–68; PULSE 40–78; RESP 8–33; TEMP 36.2–36.7; O2SAT 66–100
[2025-02-18 05:13] LABS: HEMATOCRIT. 21.1 % (36.0-48.0); HEMOGLOBIN. 7.3 g/dL (12.0-16.0); MEAN CORPUSCULAR HEMOGLOBIN 28.4 pg (28.0-32.0); MEAN CORPUSCULAR HGB CONC 34.5 g/dL (31.0-37.0); MEAN CORPUSCULAR VOLUME 82.4 fL (81.0-99.0); RED BLOOD CELL COUNT 2.56 mill/uL (4.2-5.4); RED CELL DISTRIBUTION WIDTH 16.2 % (11.6-14.6); WHITE BLOOD COUNT 6.3 x1000/uL (4.5-11.0)
[2025-02-18 05:20] LABS: CHLORIDE 102 mEq/L (98-107); POTASSIUM 3.2 mEq/L (3.5-5.1); SODIUM 143 mEq/L (136-145)
[2025-02-18 05:21] LABS: CARBON DIOXIDE 27 mEq/L (21-32); DIFFERENTIAL COMMENT 1
[2025-02-18 05:22] LABS: CALCIUM 8.5 mg/dL (8.7-10.4)
[2025-02-18 05:23] LABS: MEAN PLATELET VOLUME 9.1 fl (7.4-10.4)
[2025-02-18 05:26] LABS: CREATININE 1.4 mg/dL (0.6-1.0); GLUCOSE 176 mg/dL (70-105)
[2025-02-18 05:27] LABS: UREA NITROGEN BLOOD 46 mg/dL (9-23)
[2025-02-18 05:29] LABS: PHOSPHORUS 3.9 mg/dL (2.5-4.9)
[2025-02-18 06:58] LABS: ANISOCYTOSIS 1+; NUCLEATED RED BLOOD CELLS 5 /100 WBC
[2025-02-18 07:01] LABS: PLATELET ESTIMATE MARKEDLY DECREASED
[2025-02-18 07:05] LABS: PLATELET 30 x1000/uL (130-400)
[2025-02-18] MEDS: POTASSIUM CHLORIDE 20MEQ/PACKET PO NR (08:28)
[2025-02-18 09:59] LABS: BG BASE EXCESS 2.6 mmol/L (-2.0-3.0); BG CARBOXYHEMOGLOBIN 2.1 % (0.5-1.5); BG DEOXYHEMOGLOBIN 4.8 % (0.0-5.0); BG FRACTION INSPIRED OXYGEN 100; BG METHEMOGLOBIN 0.3 % (0.5-1.5); BG OXYGEN SATURATION 95.1 % (94.0-98.0); BG OXYHEMOGLOBIN 92.8 % (94.0-98.0); BG PCO2 40.7 mmHg (32.0-45.0); BG PH 7.439 (7.350-7.450); BG PO2 77.1 mmHg (83.0-108.0); BG SAMPLE SITE RIGHT RADIAL; BG TOTAL HEMOGLOBIN 6.8 g/dL (12.0-16.0); BG TOTAL RESPIRATORY RATE 28 b/min; BG VENT MODE VENT-PRVC
[2025-02-18] MEDS: METOCLOPRAMIDE 10MG/10 ML UDC PO SCH (14:24)
[2025-02-18] MEDS: HYDROCORTISONE SOD SUCCINATE 250 MG/2 ML VIAL IV SCH (21:22)
[2025-02-18] MEDS: COLISTIMETHATE SODIUM IV PRN (23:05)
[2025-02-18] MEDS: SODIUM CHLORIDE 0.9% IV PRN (23:05)
[2025-02-19] VITALS (96 sets, daily range): BP systolic 91–154; BP diastolic 47–110; PULSE 56–101; RESP 0–37; TEMP 30.3–37.2252; O2SAT 64–100
[2025-02-19] MEDS: METOCLOPRAMIDE HCL 10MG/2ML VIAL IV SCH (00:22)
[2025-02-19 00:30] LABS: POTASSIUM 3.5 mEq/L (3.5-5.1)
[2025-02-19 06:04] LABS: MEAN CORPUSCULAR HEMOGLOBIN 28.4 pg (28.0-32.0); MEAN CORPUSCULAR HGB CONC 34.3 g/dL (31.0-37.0); RED BLOOD CELL COUNT 2.33 mill/uL (4.2-5.4); RED CELL DISTRIBUTION WIDTH 16.7 % (11.6-14.6); WHITE BLOOD COUNT 9.4 x1000/uL (4.5-11.0)
[2025-02-19 06:11] LABS: CARBON DIOXIDE 27 mEq/L (21-32); CHLORIDE 104 mEq/L (98-107); POTASSIUM 3.6 mEq/L (3.5-5.1); SODIUM 143 mEq/L (136-145)
[2025-02-19 06:12] LABS: CALCIUM 8.1 mg/dL (8.7-10.4)
[2025-02-19 06:14] LABS: PLATELET 23 x1000/uL (130-400)
[2025-02-19 06:15] LABS: HEMATOCRIT 19.4 % (36.0-48.0); HEMOGLOBIN 6.6 g/dL (12.0-16.0)
[2025-02-19 06:18] LABS: GLUCOSE 171 mg/dL (70-105); UREA NITROGEN BLOOD 31 mg/dL (9-23)
[2025-02-19] MEDS: POTASSIUM CHLORIDE 20MEQ/PACKET PO SCH (08:24)
[2025-02-19] MEDS: FUROSEMIDE 40MG/4ML VIAL IVP NR (19:39)
[2025-02-19] MEDS: IPRATROPIUM/ALBUTEROL 0.5-3(2.5)MG/3ML NEB HHN SCH (20:19)
[2025-02-19] MEDS: METHYLPREDNISOLONE SOD SUCC 40MG/ML (ACT-O-VIAL) IV SCH (23:49)
[2025-02-20] VITALS (106 sets, daily range): BP systolic 87–133; BP diastolic 42–66; PULSE 59–89; RESP 5–29; TEMP 35.9–36.22512; O2SAT 69–93
[2025-02-20] MEDS: ACETYLCYSTEINE 200MG/ML 20% VIAL 4ML INH SCH (00:38)
[2025-02-20 01:59] LABS: HEMATOCRIT. 26.1 % (36.0-48.0); HEMOGLOBIN. 8.5 g/dL (12.0-16.0); MEAN CORPUSCULAR HEMOGLOBIN 29.1 pg (28.0-32.0); MEAN CORPUSCULAR HGB CONC 32.7 g/dL (31.0-37.0); MEAN PLATELET VOLUME 9.4 fl (7.4-10.4); PLATELET 73 x1000/uL (130-400); RED BLOOD CELL COUNT 2.93 mill/uL (4.2-5.4); RED CELL DISTRIBUTION WIDTH 16.5 % (11.6-14.6); WHITE BLOOD COUNT 16.8 x1000/uL (4.5-11.0)
[2025-02-20 02:21] LABS: DIFFERENTIAL COMMENT 1
[2025-02-20 05:57] LABS: HEMATOCRIT. 28.7 % (36.0-48.0); HEMOGLOBIN. 9.4 g/dL (12.0-16.0); MEAN CORPUSCULAR HEMOGLOBIN 29.2 pg (28.0-32.0); MEAN CORPUSCULAR HGB CONC 32.9 g/dL (31.0-37.0); MEAN CORPUSCULAR VOLUME 88.8 fL (81.0-99.0); MEAN PLATELET VOLUME 9.4 fl (7.4-10.4); PLATELET 70 x1000/uL (130-400); RED BLOOD CELL COUNT 3.23 mill/uL (4.2-5.4)
[2025-02-20 06:05] LABS: INR 1.4; PROTHROMBIN TIME 14.6 sec (9.6-11.0)
[2025-02-20 06:13] LABS: POTASSIUM 4.7 mEq/L (3.5-5.1)
[2025-02-20 06:46] LABS: CREATININE 1.4 mg/dL (0.6-1.0)
[2025-02-20 07:07] LABS: DIFFERENTIAL COMMENT 1
[2025-02-20 07:33] LABS: NUCLEATED RED BLOOD CELLS 1 /100 WBC; PLATELET ESTIMATE DECREASED
[2025-02-20 07:35] LABS: ANISOCYTOSIS 1+
[2025-02-20 08:06] LABS: ANISOCYTOSIS 1+; NUCLEATED RED BLOOD CELLS 1 /100 WBC; PLATELET ESTIMATE DECREASED
[2025-02-20 17:07] LABS: *HIV-1 RNA BY PCR <20 copies/mL (.)
[2025-02-20] MEDS ORDERED: FENTANYL 2500MCG/250ML PMX 250 ML IV PRN (18:00)
[2025-02-21] VITALS (107 sets, daily range): BP systolic 45–174; BP diastolic 32–88; PULSE 35–92; RESP 6–29; TEMP 34.4–35.8; O2SAT 72–95
[2025-02-21 06:03] LABS: HEMATOCRIT 25.1 % (36.0-48.0); HEMOGLOBIN 8.3 g/dL (12.0-16.0); MEAN CORPUSCULAR HEMOGLOBIN 28.9 pg (28.0-32.0); MEAN CORPUSCULAR VOLUME 87.6 fL (81.0-99.0); RED BLOOD CELL COUNT 2.86 mill/uL (4.2-5.4); RED CELL DISTRIBUTION WIDTH 17.3 % (11.6-14.6); WHITE BLOOD COUNT 17.8 x1000/uL (4.5-11.0)
[2025-02-21 06:13] LABS: CARBON DIOXIDE 26 mEq/L (21-32); CHLORIDE 103 mEq/L (98-107); POTASSIUM 4.6 mEq/L (3.5-5.1); SODIUM 142 mEq/L (136-145)
[2025-02-21 06:14] LABS: CALCIUM 8.6 mg/dL (8.7-10.4)
[2025-02-21 06:16] LABS: PLATELET 38 x1000/uL (130-400)
[2025-02-21 06:17] LABS: BG BASE EXCESS -2.4 mmol/L (-2.0-3.0); BG CARBOXYHEMOGLOBIN 1.8 % (0.5-1.5); BG DEOXYHEMOGLOBIN 20.1 % (0.0-5.0); BG FRACTION INSPIRED OXYGEN 100; BG HCO3 ACT 27.4 mmol/L (21.0-28.0); BG METHEMOGLOBIN 0.3 % (0.5-1.5); BG OXYGEN SATURATION 79.5 % (94.0-98.0); BG OXYHEMOGLOBIN 77.8 % (94.0-98.0); BG PCO2 82.2 mmHg (32.0-45.0); BG PH 7.141 (7.350-7.450); BG PO2 48.6 mmHg (83.0-108.0); BG SAMPLE SITE RIGHT RADIAL; BG TOTAL HEMOGLOBIN 9.1 g/dL (12.0-16.0); BG VENT MODE AC/PRVC
[2025-02-21 06:19] LABS: CREATININE 1.1 mg/dL (0.6-1.0); GLUCOSE 73 mg/dL (70-105); UREA NITROGEN BLOOD 36 mg/dL (9-23)
[2025-02-21 09:10] LABS: BG BASE EXCESS -0.7 mmol/L (-2.0-3.0); BG CARBOXYHEMOGLOBIN 1.7 % (0.5-1.5); BG DEOXYHEMOGLOBIN 15.9 % (0.0-5.0); BG FRACTION INSPIRED OXYGEN 100; BG METHEMOGLOBIN 0.3 % (0.5-1.5); BG OXYGEN SATURATION 83.8 % (94.0-98.0); BG OXYHEMOGLOBIN 82.1 % (94.0-98.0); BG PCO2 74.2 mmHg (32.0-45.0); BG PH 7.195 (7.350-7.450); BG PO2 52.6 mmHg (83.0-108.0); BG SAMPLE SITE RIGHT RADIAL; BG TOTAL HEMOGLOBIN 8.3 g/dL (12.0-16.0); BG VENT MODE VENT - AC/PRVC
[2025-02-21 14:44] LABS: BG BASE EXCESS -1.9 mmol/L (-2.0-3.0); BG CARBOXYHEMOGLOBIN 2.5 % (0.5-1.5); BG DEOXYHEMOGLOBIN 14.6 % (0.0-5.0); BG FRACTION INSPIRED OXYGEN 100; BG HCO3 ACT 24.9 mmol/L (21.0-28.0); BG METHEMOGLOBIN 0.2 % (0.5-1.5); BG OXYHEMOGLOBIN 82.7 % (94.0-98.0); BG PCO2 54.6 mmHg (32.0-45.0); BG PH 7.277 (7.350-7.450); BG PO2 51.2 mmHg (83.0-108.0); BG SAMPLE SITE RIGHT RADIAL; BG TOTAL HEMOGLOBIN 7.5 g/dL (12.0-16.0); BG VENT MODE VENT - AC/PRVC
[2025-02-21] MEDS: PANTOPRAZOLE SODIUM 40 MG/VIAL IV SCH (21:53)
[2025-02-21] MEDS ORDERED: FENTANYL 2500MCG/250ML PMX 250 ML IV PRN (23:15)
[2025-02-22] MEDS ORDERED: AMIODARONE HCL 50MG/ML 3ML VIAL IV ONE
== END 2025-02-22 00:02 | DRG 870 ==
LOC: MICUSO 21:06
PROVIDERS: ADMIT Family Medicine Adult Medicine; ATTEND Family Medicine Adult Medicine
PROC: 5A1955Z Respiratory Ventilation, Greater than 96 Consecutive Hours (ICD-10-PCS; 2025-02-09)
PROC: 0BH17EZ Insertion of Endotracheal Airway into Trachea, Via Natural or Artificial Opening (ICD-10-PCS; 2025-02-09)
PROC: 5A1D70Z Performance of Urinary Filtration, Intermittent, Less than 6 Hours Per Day (ICD-10-PCS; 2025-02-10)
PROC: 4A00X4Z Measurement of Central Nervous Electrical Activity, External Approach (ICD-10-PCS; 2025-02-11)
PROC: 5A1D70Z Performance of Urinary Filtration, Intermittent, Less than 6 Hours Per Day (ICD-10-PCS; 2025-02-12)
PROC: 5A1D70Z Performance of Urinary Filtration, Intermittent, Less than 6 Hours Per Day (ICD-10-PCS; 2025-02-15)
PROC: 30233K1 Transfusion of Nonautologous Frozen Plasma into Peripheral Vein, Percutaneous Approach (ICD-10-PCS; 2025-02-16)
PROC: 5A1D70Z Performance of Urinary Filtration, Intermittent, Less than 6 Hours Per Day (ICD-10-PCS; 2025-02-16)
PROC: 6A551Z2 Pheresis of Platelets, Multiple (ICD-10-PCS; 2025-02-17)
PROC: 5A1D70Z Performance of Urinary Filtration, Intermittent, Less than 6 Hours Per Day (ICD-10-PCS; 2025-02-18)
PROC: 30233N1 Transfusion of Nonautologous Red Blood Cells into Peripheral Vein, Percutaneous Approach (ICD-10-PCS; principal; 2025-02-20)
PROC: 5A1D70Z Performance of Urinary Filtration, Intermittent, Less than 6 Hours Per Day (ICD-10-PCS; 2025-02-20)
PROC: 5A12012 Performance of Cardiac Output, Single, Manual (ICD-10-PCS; 2025-02-22)
DX: A41.02 Sepsis due to Methicillin resistant Staphylococcus aureus (principal); G82.50 Quadriplegia, unspecified; G92.8 Other toxic encephalopathy; L89.214 Pressure ulcer of right hip, stage 4; L89.154 Pressure ulcer of sacral region, stage 4; L89.224 Pressure ulcer of left hip, stage 4; L89.324 Pressure ulcer of left buttock, stage 4; L89.314 Pressure ulcer of right buttock, stage 4; N18.6 End stage renal disease; J15.69 Pneumonia due to other Gram-negative bacteria; I50.23 Acute on chronic systolic (congestive) heart failure; J96.21 Acute and chronic respiratory failure with hypoxia; E46 Unspecified protein-calorie malnutrition; I13.2 Hypertensive heart and chronic kidney disease with heart failure and with stage 5 chronic kidney disease, or end stage renal disease; I42.9 Cardiomyopathy, unspecified; E11.52 Type 2 diabetes mellitus with diabetic peripheral angiopathy with gangrene; E87.4 Mixed disorder of acid-base balance; Z68.1 Body mass index [BMI] 19.9 or less, adult; M46.28 Osteomyelitis of vertebra, sacral and sacrococcygeal region; K92.2 Gastrointestinal hemorrhage, unspecified; J84.10 Pulmonary fibrosis, unspecified; B02.9 Zoster without complications; D64.9 Anemia, unspecified; G40.909 Epilepsy, unspecified, not intractable, without status epilepticus; I48.0 Paroxysmal atrial fibrillation; I77.82 Antineutrophilic cytoplasmic antibody [ANCA] vasculitis; E11.22 Type 2 diabetes mellitus with diabetic chronic kidney disease; R62.7 Adult failure to thrive; I35.1 Nonrheumatic aortic (valve) insufficiency; M06.9 Rheumatoid arthritis, unspecified; D69.6 Thrombocytopenia, unspecified; E87.5 Hyperkalemia; E87.6 Hypokalemia; M35.00 Sjogren syndrome, unspecified; B37.9 Candidiasis, unspecified; Z74.01 Bed confinement status; Z79.899 Other long term (current) drug therapy; Z99.2 Dependence on renal dialysis; Z93.1 Gastrostomy status; Z78.9 Other specified health status; Z86.73 Personal history of transient ischemic attack (TIA), and cerebral infarction without residual deficits
CPT/HCPCS: 31720; 36415; 36600; 71045; 74018; 80048; 80051; 80053; 80202; 82040; 82375; 82550; 82805; 82962; 83036; 83735; 84100; 84132; 84134; 84145; 84443; 84478; 84484; 85025; 85027; 85049; 85384; 86705; 86709; 86850; 86900; 86920; 86927; 87070; 87077; 87186; 87340; 87536; 90935; 93005; 93971; 94002; 94003; 94070; 94640; 94664; 94760; 95816; 98960; A4606; A6261; J0133; J0282; J0295; J0692; J0770; J1265; J1720; J1815; J1940; J1953; J2250; J2470; J2543; J2597; J2704; J2765; J2919; J3010; J3370; J3475; J3480; J3490; J7050; J7060; J7070; J7608; J8597; P9016; P9017; P9034